=== PATIENT | female | born 1925 | race Hispanic/Latino ===

== ENCOUNTER 2017-07-08 15:11 | Inpatient (IN) | payer MEDICARE, BC, MEDICAID ==
--- NOTE | 2017-07-08 16:02 | RAD ---
EXAM: ONE VIEW CHEST: 07/08/17 COMPARISON: 08/14/16. HISTORY: Shortness of breath and dyspnea. FINDINGS: Sternotomy wires and atherosclerosis are redemonstrated. Normal cardiac silhouette. The pulmonary ve ssels and hilum are normal. Costophrenic angles are clear. Chronic changes without consolidation or mass. No pneumothorax or osseous abnormality noted. IMPRESSION: 1. Atherosclerosis. 2. No acute cardiopulmonary process. POS: [facility]
[2017-07-08 16:03] LABS: #Basophils 0.1 thou/uL (0.0-0.2); #Eosinphils 0.3 thou/uL (0.0-0.7); #Lymphocytes 0.8 thou/uL (1.20-3.40); #Monocytes 0.6 thou/uL (0.11-0.59); %Basophils 1.1 % (0.0-1.0); %Eosinophils 6.9 % (0.0-10.0); %Lymphocytes 16.8 % (21.0-51.0); %Monocytes 12.6 % (0.0-10.0); Hematocrit 26.8 % (36.0-47.0); Mean Platelet Volume 8.2 fL (7.4-10.4); Red Blood Cell (RBC) Count 2.75 mill/uL (4.20-5.40); White Blood Cell (WBC) Count 4.7 thou/uL (4.8-10.8)
[2017-07-08 16:27] LABS: Troponin I 0.012 ng/mL (< 0.028)
[2017-07-08 16:28] LABS: ALT (SGPT) 63 U/L (8-55); AST (SGOT) 66 U/L (5-34); Alkaline Phosphatase 133 U/L (40-150); Anion Gap 12 mmol/L (10-20); BUN (Urea Nitrogen) 40 mg/dL (9.8-20.1); Bilirubin, Total 0.3 mg/dL (0.2-1.2); Calc. Creatinine Clearance 0 mL/min (70-130); Calcium 8.8 mg/dL (7.8-10.44); Carbon Dioxide 19 mmol/L (23-31); Chloride 107 mmol/L (98-107); Estimated GFR-MDRD 32; Globulin 3.3 g/dL (2.4-3.5); Protein, Total 7.1 g/dL (6.0-8.3)
[2017-07-08] MEDS ORDERED: Furosemide 40 MG/4 ML VIAL ONE (18:02)
[2017-07-08] MEDS ORDERED: Insulin Regular 300 UNITS/3 ML VIAL ONE (18:02)
[2017-07-08] MEDS ORDERED: Calcium Chloride 1 GM/10 ML Abboject SYRINGE ONE ×2 (18:02→18:05)
[2017-07-08] MEDS ORDERED: Dextrose 50% Abboject 50 ML SYRINGE ONE (18:02)
[2017-07-08] MEDS ORDERED: Sodium Bicarbonate 2.4 MEQ/5 ML ONE (18:02)
[2017-07-08] MEDS ORDERED: Sodium Bicarb 50 MEQ/50 ML Abboject 8.4% SYRINGE ONE (18:03)
[2017-07-08] MEDS ORDERED: Ondansetron HCl/PF 4 MG/2 ML Vial ONE (18:28)
[2017-07-08 18:32] LABS: Bilirubin Negative (Negative); Blood, Urine Negative (Negative); Glucose, Urine (Dipstick) Negative (Negative); Ketone, Urine Negative (Negative); Nitrite Negative (Negative); Protein, Urine (Dipstick) Trace mg/dL (Neg-Trace)
[2017-07-08 20:01] LABS: Troponin I Less than 0.010 ng/mL (< 0.028)
[2017-07-08] MEDS ORDERED: Acetaminophen 325 MG TAB PO PRN (20:18)
[2017-07-08] MEDS ORDERED: Dextrose 50% Abboject 50 ML SYRINGE SLOW IVP PRN (20:18)
[2017-07-08] MEDS ORDERED: Ondansetron HCl/PF 4 MG/2 ML Vial IVP PRN (20:18)
[2017-07-08] MEDS ORDERED: Bisacodyl 5 MG TAB PO PRN (20:18)
[2017-07-08] MEDS ORDERED: Ondansetron ODT 4 MG TAB PO PRN (20:18)
[2017-07-08] MEDS ORDERED: Dextrose 5% in Water 1,000 ML IV PRN (20:18)
[2017-07-08 20:23] VITALS: BMI 33.5
[2017-07-08] MEDS: Insulin Detemir 100 UNITS/ML 10 UNITS in Pre-Filled Syringe 1 EACH SC SCH (21:54)
[2017-07-08 22:28] LABS: Troponin I Less than 0.010 ng/mL (< 0.028)
--- NOTE | 2017-07-08 22:29 | HP ---
PRIMARY CARE PHYSICIAN: Anay. CHIEF COMPLAINT: Cough with shortness of breath. HISTORY OF PRESENT ILLNESS: This is an 89-year-old female, mostly Sinhala speaking, with maryanne blanco at bedside helping with translation and also making use of a photograph inspector phone. She presents t o the emergency room with a 3 to 4-week history of shortness of breath and cough productive of clear sputum. She was treated with antibiotics for a possible bronchitis 3 weeks ago, did not improve at all and then a week ago, was given a different set of antibiotics. She states that her symptoms ju st continued to get worse, also having symptoms of chills and weakness but no fevers. She does repo rt some lower extremity swelling that is specifically worse over the last 2-3 days. The patient is not clear about her medical history but does know that she is to take fluid pills for swelling but t hat she stopped these because of kidney problems. PAST MEDICAL HISTORY: The patient is not clear about her medical history, so history is taken from the computer chart: 1. Diastolic congestive heart failure. 2. Hypertension. 3. Hypothyroidism. 4. Coronary artery disease. 5. Diabetes mellitus type 2, insulin-dependent. 6. Chronic kidney disease, stage 3. 7. Osteoporosis. 8. Osteoarthritis. 9. Chronic normocytic anemia. PAST SURGICAL HISTORY: 1. Appendectomy. 2. CABG x4 vessels. FAMILY HISTORY: Father with heart disease. SOCIAL HISTORY: No tobacco or illicit drug use. Does occasionally drink alcohol. ALLERGIES: 1. SARINA INHIBITORS. 2. LOSARTAN, though is able to take olmesartan without a problem. 3. SULFAMETHAZINE. MEDICATIONS: The patient does not have her current medications with her and is not able to give a l ist at this time. Per the ER chart, the patient was most recently on: 1. Levothyroxine 75 mcg daily. 2. Tramadol 50 mg every 6 hours as needed. 3. Furosemide 40 mg daily. The patient is off this for unknown length of time. 4. K-Dur 20 mEq daily while on furosemide. 5. Levemir FlexPen 25 units subcutaneous once a day. This was actually 10 units one year ago. I a m not sure what the most recent dose is. 6. Pravastatin 20 mg daily. 7. Aspirin 81 mg daily. 8. Metoprolol extended release 100 mg twice a day. 9. Allopurinol 100 mg 2 times a day. 10. Isosorbide mononitrate 120 mg daily. REVIEW OF SYSTEMS: Constitutional: No fevers. She has had some chills over the last few days. Ey es: No double vision or blurred vision. She has had some watering of her eyes. ENT: No congestion or sore throat. Cardiovascular: No current chest pain, no palpitations. She d oes get occasional mild squeezing chest pain on and off, though none currently. Pulmonary: See HPI. No chest tightness. She has had some wheezing. Gastrointestinal: The patien t reports some nausea and vomiting of clear liquids over the last few days. No vomiting of blood. She has been holding fluids down and drinks quite a lot according to her . No constipation o r diarrhea. Genitourinary: No dysuria or hematuria. Musculoskeletal: She has some muscle aches i n her bilateral shoulders, otherwise, no pain in her extremities. She does have edema to bilateral feet and ankles as per HPI. Neurologic: She does have some chronic numbness and tingling in her bi lateral ankles and feet. PHYSICAL EXAMINATION: VITAL SIGNS: Blood pressure 152/52, pulse 55, respirations 16, temperature 98.7, O2 sat 98% on 2 li ters. GENERAL: This is a well-developed, obese female in no apparent distress, breathing easily on oxygen currently. EYES: Pupils equal, round, and reactive to light. Extraocular movements are intact. Oropharynx is clear without lesions, erythema, or exudate. NECK: Supple, no lymphadenopathy, no thyroid nodules or enlargement. No JVD. HEART: Regular rate and rhythm. No murmurs, rubs, or gallops. LUNGS: Bibasilar crackles with decent air movement otherwise and no increased work of breathing cur rently. ABDOMEN: Soft, nontender to palpation, normoactive bowel sounds, no hepatosplenomegaly or other mas ses. EXTREMITIES: She does have bilateral 2+ pitting edema to mid banks with good peripheral pulses. SKIN: No rashes or other lesions noted. NEUROLOGIC: Strength is intact in all extremities. She has no facial droop. She has intact deep t endon reflexes in all extremities. PSYCHIATRIC: Alert and oriented x3, normal mood and affect. LABORATORY DATA: White blood cell count 4.7, hemoglobin 8.8, which is on the lower end but within h er normal range of between 8 and 11, platelet count 196. Complete metabolic panel was notable for a sodium of 132, a potassium elevated at 6.3 for which she got calcium in the emergency room as well as Lasix, carbon dioxide of 19, BUN of 40, creatinine of 1.52, which is actually close to baseline f or her, has regularly been up in the 2s in the past, glucose of 172. Her AST and ALT are both eleva kusum mildly at 66 and 63. The remainder of the liver functions were normal. Brain natriuretic pepti de is elevated at 745, which is massively higher than her previous readings. Cardiac marker set neg ative x1. Urinalysis was negative for infection. IMAGING: Chest x-ray: I did review the chest x-ray along with the radiologist's report, it does sh ow some atherosclerosis but no evidence of infiltrate or pulmonary edema. EKG: I did review the EK G down in the emergency room shows sinus rhythm with a sinus arrhythmia and incomplete right bundle branch block, no ischemic changes. ASSESSMENT AND PLAN: 1. Acute on chronic diastolic congestive heart failure. The patient is clinically volume overloade d and her BNP is quite elevated and her creatinine is actually down to close to her baseline, so she appears to be under diuresed likely due to the complete stopping of her Lasix. The patient got 40 mg of IV Lasix in the emergency room. We will continue this twice a day and recheck her creatinine regularly. We will consult Dr. Stock on this patient. We will get an echocardiogram. 2. Shortness of breath likely secondary to acute on chronic diastolic congestive heart failure, als o with some wheezing that improved with nebs in the emergency room. We will give the patient DuoNeb s regularly as well as cough medicine as needed. 3. Hyperkalemia, possibly related to her chronic renal failure. There is also some question about if the patient is still on her potassium even though she has stopped her Lasix. We will hold any or al potassium for now. We will continue IV Lasix and check regularly. If this may stay elevated or goes up further or her creatinine bumps too much with attempts at diuresis, we may need to get Nephr ology involved. 4. Gastrointestinal prophylaxis. Put the patient on Pepcid twice a day. 5. Deep venous thrombosis prophylaxis. Put the patient on renally-dosed Lovenox at 30 mg daily. 6. Diabetes. We will put the patient on insulin sliding scale along with Levemir 10 units subcutan eous at night. 7. Resume home medications once we obtain an updated list. 8. CODE STATUS: The patient is a FULL CODE.
[2017-07-08] MEDS: Famotidine 20 MG TAB PO SCH (23:08)
[2017-07-08] MEDS: Docusate 100 MG CAP PO SCH (23:08)
[2017-07-09 06:00] LABS: #Eosinphils 0.4 thou/uL (0.0-0.7); #Monocytes 0.6 thou/uL (0.11-0.59); #Neutrophils 2.3 thou/uL (1.40-6.50); %Basophils 0.9 % (0.0-1.0); %Eosinophils 9.4 % (0.0-10.0); %Lymphocytes 21.9 % (21.0-51.0); %Monocytes 14.2 % (0.0-10.0); Hematocrit 27.3 % (36.0-47.0); Mean Platelet Volume 7.6 fL (7.4-10.4); Red Blood Cell (RBC) Count 2.82 mill/uL (4.20-5.40); White Blood Cell (WBC) Count 4.4 thou/uL (4.8-10.8)
[2017-07-09 06:17] LABS: Anion Gap 10 mmol/L (10-20); BUN (Urea Nitrogen) 38 mg/dL (9.8-20.1); Calc. Creatinine Clearance 27 mL/min (70-130); Calcium 9.8 mg/dL (7.8-10.44); Carbon Dioxide 24 mmol/L (23-31); Chloride 106 mmol/L (98-107); Estimated GFR-MDRD 31
[2017-07-09] MEDS: Furosemide 40 MG/4 ML VIAL SLOW IVP SCH ×2 (06:48→15:06)
[2017-07-09] MEDS: Guaifenesin DM 100-10/5 ML UDCUP PO PRN (06:56)
[2017-07-09] MEDS: Enoxaparin Sodium 30 MG/0.3 ML SYRINGE SC SCH (08:55)
[2017-07-09] MEDS: Docusate 100 MG CAP PO SCH ×2 (08:55→21:41)
[2017-07-09] MEDS ORDERED: Amlodipine 10 MG TAB PO SCH (09:00)
[2017-07-09] MEDS ORDERED: Aspirin 81 mg Enteric Coated Tablet PO SCH (09:00)
--- NOTE | 2017-07-09 09:24 | PDOC.PN ---
- Subjective Encounter Start Date: 07/09/17 Encounter Start Time: 09:22 Ms. Lopez says she is feeling a little better, but she still geys short of breath especially when she lays on her right side. she also notes that she hears some wheezing as well. - Objective Resuscitation Status: Resuscitation Status FULL:Full Resuscitation MAR Reviewed: Yes Vital Signs & Weight: Vital Signs (12 hours) Temp Pulse Resp BP BP Pulse Ox 07/09/17 08:55 58 L 160/71 H 07/09/17 08:48 97.7 F 58 L 18 169/71 H 96 07/09/17 06:45 65 165/74 H 07/09/17 02:55 97.6 F 63 20 178/70 H 99 07/08/17 23:51 97.3 F L 63 18 152/69 H 100 07/08/17 22:00 56 L 20 158/67 H 98 Weight Weight 159 lb 14.4 oz I&O: 07/08/17 07/09/17 07/10/17 06:59 06:59 06:59 Intake Total 420 Balance 420 Result Diagrams: 07/09/17 05:43 07/09/17 05:43 Additional Labs: Accuchecks 07/09/17 07/09/17 07/08/17 05:51 02:05 21:57 POC Glucose 111 H 189 H 110 Phys Exam - Physical Examination HEENT: PERRLA Respiratory: wheezing present + rales at the right base, and some scattered wheezing. Cardiovascular: RRR, no significant murmur Gastrointestinal: soft, no distention, positive bowel sounds Musculoskeletal: edema present 1+ pedal edema Dx/Plan (1) Diastolic CHF, acute on chronic Code(s): I50.33 - ACUTE ON CHRONIC DIASTOLIC (CONGESTIVE) HEART FAILURE Status : Acute (2) Benign essential hypertension Code(s): I10 - ESSENTIAL (PRIMARY) HYPERTENSION Status: Chronic Comment: better controlled (3) Diabetes mellitus with polyneuropathy Code(s): E11.42 - TYPE 2 DIABETES MELLITUS WITH DIABETIC POLYNEUROPATHY Status : Chronic Qualifiers: Diabetes mellitus type: type 2 Qualified Code(s): E11.42 - Type 2 diabetes mellitus with diabetic polyneuropathy Comment: controlled. cont current regimen (4) Gastroesophageal reflux disease Code(s): K21.9 - GASTRO-ESOPHAGEAL REFLUX DISEASE WITHOUT ESOPHAGITIS Status: Chronic - Plan * Acute on chronic diastolic heart failure- improving with Diureses * She may also have some degree of reactive airway disease and bronchitis- possibly viral, she has had 2 coarses * Hyperkalemia- persists- will give a dose of Kayexalate * Acute on chronic kidney disease- will monitor her renal function * DM- blood glucose is stable- will monitor .
[2017-07-09] MEDS: Benzonatate 100 MG CAP PO PRN (11:32)
[2017-07-09] MEDS ORDERED: hydrALAZINE 20 MG/ML VIAL SLOW IVP PRN (12:59)
[2017-07-09] MEDS: Furosemide 20 MG/2 ML VIAL SLOW IVP SCH (15:09)
--- NOTE | 2017-07-09 16:00 | CON ---
CARDIOLOGY CONSULTATION DATE OF CONSULTATION: 07/09/2017 HISTORY OF PRESENT ILLNESS: Ms. Servin is a pleasant 89-year-old woman with history of coronary ar nikki disease and previous bypass surgeries, admitted to the hospital with weakness and fatigue and w as found to be have renal failure and hyperkalemia and history of coronary artery disease. Gareth presented to the hospital mostly with weakness and fatigue and some shortness of breath. Sh primo had been treated with antibiotics for possible bronchitis, also had fever and chills. She has had some lower extremity edema. No chest pain. PAST HISTORY: 1. Diastolic heart failure. 2. Hypertension 3. Hypothyroidism. 4. Coronary artery disease with previous bypass surgery. 5. Diabetes. 6. Chronic kidney disease stage 3. 7. Osteoporosis. 8. Osteoarthritis. PAST SURGICAL HISTORY: 1. Appendectomy. 2. Bypass surgery x4. FAMILY HISTORY: Father with heart disease. SOCIAL HISTORY: No alcohol or tobacco abuse. ALLERGIES: SARINA INHIBITORS. MEDICATIONS AT HOME: The patient was taking potassium as well as Benicar also pravastatin and metop rolol and furosemide. REVIEW OF SYSTEMS: Constitutional: No significant weight gain or loss. Vision: No changes. Hear ing: No changes. Pulmonary: No cough or wheezing. Gastrointestinal: No nausea, vomiting, or marta rrhea. Skin: No rashes. Neurologic: No unilateral weakness or numbness. Psychiatric: No unusua l depression or anxiety. Hematologic: No unusual bruising. Genitourinary: Unknown. PHYSICAL EXAMINATION: GENERAL: This is a pleasant elderly woman, in no distress. VITAL SIGNS: Blood pressure 175/74, pulse 63, regular. EYES: Sclerae nonicteric. Mouth mucous membranes moist. NECK: Supple. No lymphadenopathy. LUNGS: Some basilar rales, I think is probably pulmonary not cardiac, she is able to lay completely flat and very comfortably. CARDIAC: Normal S1, normal S2. There is a 2/6 systolic murmur right upper sternal border. No lundy tolic murmur. No S3. ABDOMEN: Soft, nontender. No hepatosplenomegaly. EXTREMITIES: Warm and dry. No clubbing. No cyanosis or edema. Popliteal pulses are palpable. PERTINENT LABORATORY: Her creatinine was elevated at 1.59. Estimated GFR 31, potassium was 6.3. B BLOCK SETTER GYPSUM 745. Chest x-ray was clear. Echocardiogram ejection fraction 50-55%, moderate mitral regurgitat ion, mild aortic insufficiency, mild tricuspid insufficiency, moderately elevated pulmonary artery p ressure. EKG sinus rhythm, incomplete right bundle branch block. There is a long first degree AV b lock. ASSESSMENT: 1. Congestive heart failure, diastolic, acute on chronic. 2. Renal failure. 3. Hyperkalemia. 4. Anemia with hemoglobin of 8.9. 5. Previous bypass surgery done by Dr. Tripathi x4 internal mammary to the left anterior ascending , vein graft to ramus, posterior descending and distal obtuse marginal. PLAN: 1. Agree to stopping potassium and angiotensin receptor blockers. 2. We will reduce diuretic dose. 3. Change from metoprolol to carvedilol to help with blood pressure control. 4. We will try to reduce the amount of amlodipine, which may tend to cause fluid retention and lundy tolic heart failure. 5. Hydralazine as needed. 6. Statin therapy. 7. Aspirin. 8. Check iron levels to see whether she is iron deficient.
[2017-07-09] MEDS: Simvastatin 5 MG TAB PO SCH (21:41)
[2017-07-09] MEDS: Allopurinol 100 MG TAB PO SCH (21:41)
[2017-07-09] MEDS: Famotidine 20 MG TAB PO SCH (21:42)
[2017-07-09] MEDS: Insulin Detemir 100 UNITS/ML 10 UNITS in Pre-Filled Syringe 1 EACH SC SCH (21:42)
[2017-07-10 05:13] LABS: #Eosinphils 0.7 thou/uL (0.0-0.7); #Lymphocytes 1.3 thou/uL (1.20-3.40); #Monocytes 0.7 thou/uL (0.11-0.59); #Neutrophils 2.1 thou/uL (1.40-6.50); %Basophils 0.5 % (0.0-1.0); %Eosinophils 14.3 % (0.0-10.0); %Lymphocytes 26.8 % (21.0-51.0); %Monocytes 14.8 % (0.0-10.0); Hematocrit 28.3 % (36.0-47.0); Mean Platelet Volume 7.7 fL (7.4-10.4); Red Blood Cell (RBC) Count 2.89 mill/uL (4.20-5.40); White Blood Cell (WBC) Count 4.7 thou/uL (4.8-10.8)
[2017-07-10 05:31] LABS: Anion Gap 13 mmol/L (10-20); BUN (Urea Nitrogen) 37 mg/dL (9.8-20.1); Calc. Creatinine Clearance 25 mL/min (70-130); Calcium 9.7 mg/dL (7.8-10.44); Carbon Dioxide 26 mmol/L (23-31); Chloride 102 mmol/L (98-107); Cholesterol 111 mg/dl (< 200 Desired); Estimated GFR-MDRD 28; Iron 30 ug/dL (50-170); LDL Cholesterol, Calculated 46 mg/dL
[2017-07-10] MEDS: Furosemide 20 MG/2 ML VIAL SLOW IVP SCH ×2 (06:43→14:05)
[2017-07-10] MEDS: Levothyroxine Sodium 75 MCG TAB PO SCH (06:43)
[2017-07-10] MEDS: Enoxaparin Sodium 30 MG/0.3 ML SYRINGE SC SCH (08:42)
[2017-07-10] MEDS: Carvedilol 6.25 MG TAB PO SCH ×2 (08:42→16:54)
[2017-07-10] MEDS: Aspirin 81 mg Enteric Coated Tablet PO SCH (08:42)
[2017-07-10] MEDS: Docusate 100 MG CAP PO SCH ×2 (08:43→21:00)
[2017-07-10] MEDS: Amlodipine 5 MG TAB PO SCH (08:43)
[2017-07-10] MEDS: Allopurinol 100 MG TAB PO SCH ×2 (08:43→21:00)
[2017-07-10] MEDS: Guaifenesin DM 100-10/5 ML UDCUP PO PRN (08:54)
[2017-07-10] MEDS ORDERED: Azithromycin 250 MG TAB PO SCH ×2 (09:00)
[2017-07-10] MEDS: Benzonatate 100 MG CAP PO PRN (14:36)
--- NOTE | 2017-07-10 14:50 | PRG ---
DATE OF SERVICE: 07/10/2017 SUBJECTIVE: Ms. Servin is feeling better today. She has some atypical type chest pain, nothing to suggest angina. Peripheral pulses 67. OBJECTIVE: LUNGS: Clear. CARDIAC: Normal S1, normal S2. ABDOMEN: Soft and nontender. EXTREMITIES: No edema. ASSESSMENT: 1. Previous bypass surgery. 2. Echocardiogram revealed ejection fraction 50-55% with mild aortic regurgitation and moderate janine ral regurgitation. 3. Previous bypass surgery. PLAN: 1. Continue current medical regimen. 2. She has an iron deficiency anemia. We will give intravenous iron. 3. Right bundle branch block, incomplete and stable. It will be reasonable to release the patient home to be followed up as an outpatient.
--- NOTE | 2017-07-10 14:53 | PDOC.PN ---
- Subjective Encounter Start Date: 07/10/17 Encounter Start Time: 14:50 Ms. Lopez is still having some wheezing, and cough primarily at night. - Objective Resuscitation Status: Resuscitation Status FULL:Full Resuscitation MAR Reviewed: Yes Vital Signs & Weight: Vital Signs (12 hours) Temp Pulse Pulse Pulse Resp BP BP 07/10/17 11:40 97.5 F L 67 15 07/10/17 09:26 90 92 183/77 H 07/10/17 08:43 62 07/10/17 08:42 174/74 H 07/10/17 07:27 97.5 F L 67 15 07/10/17 07:26 97.8 F 62 16 07/10/17 04:00 98 F 58 L 18 BP BP Pulse Ox Pulse Ox Pulse Ox 07/10/17 11:40 109/52 L 93 L 07/10/17 09:26 169/76 H 95 95 07/10/17 08:43 07/10/17 08:42 07/10/17 07:27 94 L 07/10/17 07:26 174/74 H 94 L 07/10/17 04:00 137/63 Weight Weight 157 lb I&O: 07/09/17 07/10/17 07/11/17 06:59 06:59 06:59 Intake Total 420 1340 240 Output Total 2220 Balance 420 -880 240 Result Diagrams: 07/10/17 04:42 07/10/17 04:42 Additional Labs: Accuchecks 07/10/17 07/10/17 07/09/17 11:02 05:48 20:23 POC Glucose 156 H 92 188 H 07/09/17 07/08/17 17:43 20:56 POC Glucose 137 H 37 L* Phys Exam - Physical Examination HEENT: PERRLA Respiratory: wheezing present + bilateral wheezing and rhonchi Cardiovascular: RRR, no significant murmur Gastrointestinal: soft, non-tender, positive bowel sounds Musculoskeletal: no edema Dx/Plan (1) Diastolic CHF, acute on chronic Code(s): I50.33 - ACUTE ON CHRONIC DIASTOLIC (CONGESTIVE) HEART FAILURE Status : Acute (2) Benign essential hypertension Code(s): I10 - ESSENTIAL (PRIMARY) HYPERTENSION Status: Chronic Comment: better controlled (3) Diabetes mellitus with polyneuropathy Code(s): E11.42 - TYPE 2 DIABETES MELLITUS WITH DIABETIC POLYNEUROPATHY Status : Chronic Qualifiers: Diabetes mellitus type: type 2 Qualified Code(s): E11.42 - Type 2 diabetes mellitus with diabetic polyneuropathy Comment: controlled. cont current regimen (4) Gastroesophageal reflux disease Code(s): K21.9 - GASTRO-ESOPHAGEAL REFLUX DISEASE WITHOUT ESOPHAGITIS Status: Chronic - Plan * Acute on chronic diastolic heart failure- mediation adjustments by Dr. Stock were noted * Continue diureses * HTN- will monitor trend on Amlodipine, and carvediolol. * Acute bronchitis- will give a coarse of Azithromycin, and a dose of Prednisone * DM- continue current medications and SSI. * Anemia- patient is receiving an iron infusion * Re-evaluate in AM
[2017-07-10] MEDS ORDERED: predniSONE 20 MG TAB PO SCH (15:00)
[2017-07-10] MEDS: Azithromycin 250 MG TAB PO SCH (16:54)
[2017-07-10] MEDS: Famotidine 20 MG TAB PO SCH (20:59)
[2017-07-10] MEDS: Simvastatin 5 MG TAB PO SCH (20:59)
[2017-07-10] MEDS: Insulin Detemir 100 UNITS/ML 10 UNITS in Pre-Filled Syringe 1 EACH SC SCH (20:59)
[2017-07-11] MEDS: Levothyroxine Sodium 75 MCG TAB PO SCH (05:34)
[2017-07-11] MEDS: Furosemide 20 MG/2 ML VIAL SLOW IVP SCH (05:43)
[2017-07-11] MEDS: Docusate 100 MG CAP PO SCH ×2 (08:37→20:25)
[2017-07-11] MEDS: Allopurinol 100 MG TAB PO SCH ×2 (08:38→20:25)
[2017-07-11] MEDS: Carvedilol 6.25 MG TAB PO SCH (08:38)
[2017-07-11] MEDS: Doxazosin 2 MG TAB PO SCH (08:38)
[2017-07-11] MEDS: Amlodipine 5 MG TAB PO SCH (08:38)
[2017-07-11] MEDS: Enoxaparin Sodium 30 MG/0.3 ML SYRINGE SC SCH (08:39)
[2017-07-11] MEDS: Aspirin 81 mg Enteric Coated Tablet PO SCH (08:39)
[2017-07-11] MEDS: Guaifenesin DM 100-10/5 ML UDCUP PO PRN ×2 (08:53→20:25)
[2017-07-11] MEDS: HumaLOG 300 UNITS/3 ML VIAL SC PRN ×2 (08:53→11:19)
--- NOTE | 2017-07-11 13:03 | PRG ---
DATE OF SERVICE: 07/11/2017 SUBJECTIVE: Ms. John Servin has severe cough. She is trying to bring some gap, but she is havin g a lot of difficulty doing so. She said her breathing, otherwise is improved. OBJECTIVE: VITAL SIGNS: Blood pressure was reported 148/64 then 97/49, pulse is 70. LUNGS: Clear. No wheezing now, but has some rhonchi. CARDIAC: Normal S1, normal S2. LABORATORY DATA: Indicates that she is probably volume depleted now. Creatinine up to 1.74. GFR i s down to 28. ASSESSMENT: 1. Diastolic heart failure, probably somewhat volume depleted now. 2. Hyperkalemia, improved. 3. Chronic obstructive pulmonary disease, reactive airway disease with bronchitis. PLAN: 1. Stop diuretics. 2. Stop Coreg. 3. Hopefully, home tomorrow if she is feeling better.
[2017-07-11] MEDS ORDERED: Sodium Chloride 0.9% 500 ML IVPB SCH (13:30)
--- NOTE | 2017-07-11 14:17 | PDOC.PN ---
- Subjective Encounter Start Date: 07/11/17 Encounter Start Time: 14:16 Ms. Lopez is complaining of some back pain, but this is mostly when she coughs. she says she is breathing better today. - Objective Resuscitation Status: Resuscitation Status FULL:Full Resuscitation MAR Reviewed: Yes Vital Signs & Weight: Vital Signs (12 hours) Temp Pulse Resp BP BP BP Pulse Ox 07/11/17 11:29 97.5 F L 73 18 97/49 L 94 L 07/11/17 08:38 78 148/64 H 07/11/17 08:35 97.9 F 78 18 148/64 H 94 L 07/11/17 08:00 97.9 F 78 18 94 L 07/11/17 04:00 97.7 F 65 16 147/65 H 95 Weight Weight 153 lb I&O: 07/10/17 07/11/17 07/12/17 06:59 06:59 06:59 Intake Total 1340 960 Output Total 2220 1800 Balance -880 -840 Result Diagrams: 07/10/17 04:42 07/10/17 04:42 Additional Labs: Accuchecks 07/11/17 07/11/17 07/10/17 10:55 06:12 20:19 POC Glucose 240 H 181 H 223 H 07/10/17 07/08/17 16:48 20:56 POC Glucose 114 H 37 L* Phys Exam - Physical Examination HEENT: PERRLA Respiratory: no rales + bilateral rhonchi, Cardiovascular: RRR, no significant murmur Gastrointestinal: soft, non-tender, positive bowel sounds Musculoskeletal: no edema Dx/Plan (1) Diastolic CHF, acute on chronic Code(s): I50.33 - ACUTE ON CHRONIC DIASTOLIC (CONGESTIVE) HEART FAILURE Status : Acute (2) Benign essential hypertension Code(s): I10 - ESSENTIAL (PRIMARY) HYPERTENSION Status: Chronic Comment: better controlled (3) Diabetes mellitus with polyneuropathy Code(s): E11.42 - TYPE 2 DIABETES MELLITUS WITH DIABETIC POLYNEUROPATHY Status : Chronic Qualifiers: Diabetes mellitus type: type 2 Qualified Code(s): E11.42 - Type 2 diabetes mellitus with diabetic polyneuropathy Comment: controlled. cont current regimen (4) Gastroesophageal reflux disease Code(s): K21.9 - GASTRO-ESOPHAGEAL REFLUX DISEASE WITHOUT ESOPHAGITIS Status: Chronic - Plan * Acute Respiratory failure- due to Bronchitis, and acute on chronic diastolic heart failure * She is now on Azithromycin, and was given a dose of steroids yesterday * Hypotension- she has been a bit over-diuresed- will give some fluid back * DM- blood glucose is slightly elevated- ( steroids) will continue SSI * Overall she is symptomatically improved * Hopefully home tomorrow.
[2017-07-11] MEDS: Azithromycin 250 MG TAB PO SCH (17:24)
[2017-07-11] MEDS: Simvastatin 5 MG TAB PO SCH (20:25)
[2017-07-11] MEDS: Insulin Detemir 100 UNITS/ML 10 UNITS in Pre-Filled Syringe 1 EACH SC SCH (20:25)
[2017-07-11] MEDS: Famotidine 20 MG TAB PO SCH (20:25)
[2017-07-12] MEDS: Levothyroxine Sodium 75 MCG TAB PO SCH (05:31)
[2017-07-12] MEDS: Doxazosin 2 MG TAB PO SCH (09:28)
[2017-07-12] MEDS: Docusate 100 MG CAP PO SCH (09:29)
[2017-07-12] MEDS: Allopurinol 100 MG TAB PO SCH (09:29)
[2017-07-12] MEDS: Amlodipine 5 MG TAB PO SCH (09:29)
[2017-07-12] MEDS: Aspirin 81 mg Enteric Coated Tablet PO SCH (09:29)
[2017-07-12] MEDS: Enoxaparin Sodium 30 MG/0.3 ML SYRINGE SC SCH (09:30)
[2017-07-12] MEDS: HumaLOG 300 UNITS/3 ML VIAL SC PRN (12:17)
[2017-07-12 12:23] VITALS: TEMP 98
[2017-07-12 15:09] VITALS: BP 173/74
--- NOTE | 2017-07-12 15:45 | DIS ---
DATE OF ADMISSION: 07/08/2017 DATE OF DISCHARGE: 07/12/2017 PRIMARY CARE PHYSICIAN: Dr. Jason Lopes. DISCHARGE DISPOSITION: Home. PRIMARY DISCHARGE DIAGNOSES: 1. Acute on chronic diastolic heart failure. 2. Acute bronchitis. 3. Hypertension. 4. Hyperkalemia secondary to olmesartan. 5. Hypothyroidism. 6. Coronary artery disease. 7. Diabetes mellitus, type 2. 8. Chronic kidney disease stage 3. DISCHARGE MEDICATIONS: The patient was taken off of olmesartan as well as potassium supplementation due to hyperkalemia. The patient was also taken off of metoprolol due to bronchospasm. New medica tion includes amlodipine 5 mg daily and she is to restart Lasix 20 mg daily. Continue tramadol 50 m g q.i.d. as needed, ranitidine 300 mg daily, pravastatin 20 mg at bedtime, Nitrostat 0.4 sublingual every 5 minutes, levothyroxine 75 mcg daily, Levemir insulin 50 units daily, Imdur extended release 60 mg daily, doxazosin 2 mg daily, Tessalon Perles 1 capsule as needed every 4 hours, aspirin 81 mg daily, allopurinol 100 mg twice a day, alendronate 70 mg once a week, and albuterol inhaler q.6 as n eeded. PROCEDURES DONE DURING ADMISSION: The patient had an echocardiogram in which the ejection fraction was estimated at 50%-55%. The left atrium was mildly dilated and there was moderate mitral regurgit ation. CODE STATUS: FULL CODE. ALLERGIES: SARINA INHIBITORS, LOSARTAN and SULFA. HOSPITAL COURSE: Ms. Lopez is a pleasant 89-year-old female that presented to the emergency room w ith complaints of cough, shortness of breath and wheezing. She had been treated with several course s of antibiotics in the outpatient setting without any improvement in her symptoms. She was admitte d and found to be in acute on chronic diastolic dysfunction with an elevated proBNP at least 3 times her baseline level. She was also found to be hyperkalemic with potassium of 6.3 and creatinine of 1.52. For this reason, olmesartan and potassium were held. She was started on IV Lasix and diurese d well. She continued to have some bronchospasms even after being euvolemic and even a little bit h ypovolemic and for this reason, all beta blockers were discontinued. She was thought to have very n arrow therapeutic window with regards to her fluid management and for this reason we are recommendin g her to go to the [facility] and the patient will also need to follow up with her primary care physician in approximately one week as well.
--- NOTE | 2017-07-16 20:10 | EKG ---
Test Reason : Blood Pressure : / mmHG Vent. Rate : 064 BPM Atrial Rate : 064 BPM P-R Int : 366 ms QRS Dur : 096 ms QT Int : 410 ms P-R-T Axes : 082 059 036 degrees QTc Int : 422 ms Sinus rhythm with sinus arrhythmia with 1st degree A-V block Incomplete right bundle branch block Borderline ECG Confirmed by MARY ZAPATA D.O. ([id number]), video tape editor LARISSA ZAMORANO ([id number]) on 07/16/2017 8:09:42 PM Referred By: Confirmed By:MARY ZAPATA D.O.
== END 2017-07-12 13:46 | disposition home or self-care (01) | DRG 291 ==
LOC: ERS 15:11 → 2NO 18:04
PROVIDERS: ADMIT Emergency Medicine; ATTEND Emergency Medicine
DX: I13.0 Hypertensive heart and chronic kidney disease with heart failure and stage 1 through stage 4 chronic kidney disease, or unspecified chronic kidney disease (principal); I50.33 Acute on chronic diastolic (congestive) heart failure; J96.00 Acute respiratory failure, unspecified whether with hypoxia or hypercapnia; E11.22 Type 2 diabetes mellitus with diabetic chronic kidney disease; E11.42 Type 2 diabetes mellitus with diabetic polyneuropathy; E87.5 Hyperkalemia; N18.3 Chronic kidney disease, stage 3 (moderate); Z79.4 Long term (current) use of insulin; Z79.82 Long term (current) use of aspirin; E03.9 Hypothyroidism, unspecified; M19.90 Unspecified osteoarthritis, unspecified site; M81.0 Age-related osteoporosis without current pathological fracture; Z95.1 Presence of aortocoronary bypass graft; I08.0 Rheumatic disorders of both mitral and aortic valves; I25.10 Atherosclerotic heart disease of native coronary artery without angina pectoris; T46.5X5A Adverse effect of other antihypertensive drugs, initial encounter; J20.9 Acute bronchitis, unspecified; D64.9 Anemia, unspecified; K21.9 Gastro-esophageal reflux disease without esophagitis
CPT/HCPCS: 36415; 36416; 71010; 80048; 80053; 80061; 81003; 82553; 82728; 83540; 83550; 83880; 84443; 84484; 85025; 93005; 93306; 93798; 94640; 94760; 96374; 96375; A4216; G8978-GP-CL; G8979-GP-CL; G8980-GP-CL; G8987-GO-CI; G8988-GO-CI; G8989-GO-CI; J1650; J1750; J1815; J1940; J2405; J7050; J7506; J7620; Q0162